=== PATIENT | male | born 1935 | race Caucasian/White ===

== ENCOUNTER 2022-02-13 09:18 | Emergency (ER) | payer MEDICARE, OTHER ==
[~2022-02-13] VITALS: Ht 172.7 cm; Wt 79.4 kg
--- NOTE | 2022-02-13 09:26 | NUR ---
HERO [id number] FROM [facility], C/O LEFT HIP PAIN FOR "UNWITNESSED FALL". TO ER BED 4.
--- NOTE | 2022-02-13 09:36 | NUR ---
DR FERMIN AT BEDSIDE FOR EVAL
--- NOTE | 2022-02-13 12:53 | NUR ---
[facility] CALLED FOR TRANSPORT, ETA 90 MIN PER RUPERTO.
--- NOTE | 2022-02-13 12:57 | NUR ---
PT REPORT GIVEN VELVET FROST SALES MARKETING COORDINATOR AT [facility].
--- NOTE | 2022-02-13 13:51 | NUR ---
EMT AT BEDSIDE TO PICKUP PT; ENDORSEMENT GIVEN TO EMT
--- NOTE | 2022-02-13 14:03 | NUR ---
Patient discharged to [facility] in stable condition via gurney accompanied by 2 videogame designer. Written and verbal after care instructions given. Patient verbalizes understanding of instruction.
[2022-02-13 14:05] VITALS: BP 124/79
== END 2022-02-13 14:06 ==
LOC: ER 09:20
DX: M25.552 Pain in left hip (principal); M25.551 Pain in right hip; R51.9 Headache, unspecified; M54.2 Cervicalgia; F32.9 Major depressive disorder, single episode, unspecified; F41.9 Anxiety disorder, unspecified; G89.29 Other chronic pain
CPT/HCPCS: 70450-TC; 72125-TC; 73700-TC

== ENCOUNTER 2022-06-03 19:42 | Inpatient (IN) | payer MEDICARE, OTHER ==
[~2022-06-03] VITALS: Ht 182.9 cm; Wt 84.2 kg
--- NOTE | 2022-06-03 19:58 | NUR ---
PT HERO 79 FROM [place] FOR C/O RED BLOOD IN THE STOOL X TODAY. PT AAOX4, ABLE TO MAKE NEEDS KNOWN. PT PLACED COMFORTABLY IN BED, VITALS CHECKED.
--- NOTE | 2022-06-03 20:04 | NUR ---
MOVE SHEET SUBMITTED.
--- NOTE | 2022-06-03 20:10 | NUR ---
EKG DONE AT BEDSIDE
--- NOTE | 2022-06-03 20:27 | NUR ---
MICROELECTRONICS TECHNICIAN AT PT'S BEDSIDE
--- NOTE | 2022-06-03 20:30 | NUR ---
BLOOD WORK COLLECTED AND SENT TO LAB
--- NOTE | 2022-06-03 20:35 | NUR ---
COVID ANTIGEN SWAB COLLECTED AND SENT TO LAB
--- NOTE | 2022-06-03 20:38 | NUR ---
Gianfranco molina in [facility] - 06/03/22 at 2038 by MIYA COVID SWAB COLLECTED AND SENT TO LAB
--- NOTE | 2022-06-03 20:40 | NUR ---
XR AT BEDSIDE
[2022-06-03 21:21] LABS: BASOPHILS % (AUTO) 0.4 % (0.0-2.0); EOSINOPHILS % (AUTO) 0.9 % (0.0-6.0); HEMATOCRIT 44 % (39-51); HEMOGLOBIN 14.4 g/dL (13.5-17.5); LYMPHOCYTES # (AUTO) 1.6 K/uL (0.8-4.8); LYMPHOCYTES % (AUTO) 25.9 % (20.0-44.0); MEAN CORPUSCULAR HGB CONC 33 g/dl (31.0-36.0); MEAN CORPUSCULAR VOLUME 96 fL (80-96); MONOCYTES # (AUTO) 0.4 K/uL (0.1-1.30); NEUTROPHILS % (AUTO) 65.8 % (43.0-81.0); PLATELET COUNT (AUTO) 211 K/uL (150-450); RED BLOOD CELL COUNT(AUTO) 4.56 MIL/uL (4.5-6.0); WHITE BLOOD COUNT (AUTO) 6.1 K/uL (4.3-11.0)
--- NOTE | 2022-06-03 21:28 | NUR ---
SHIRA ALLAN DATABASE ENGINEER AT PT'S BEDSIDE FOR EVAL
[2022-06-03 21:31] LABS: CALCIUM, SERUM 9.2 mg/dL (8.5-10.1); CARBON DIOXIDE 27 mmol/L (21-32); CHLORIDE 105 mmol/L (98-107); CREATININE 1.3 mg/dL (0.6-1.3); GLUCOSE 123 mg/dL (74-106); POTASSIUM 4.2 mmol/L (3.5-5.1); SODIUM SERUM 140 mmol/L (136-145); UREA NITROGEN, BLOOD 23 mg/dL (7-18)
[2022-06-03 21:37] LABS: ALANINE AMINOTRANSFERASE 11 U/L (12-78); ALBUMIN 3.6 g/dL (3.4-5.0); ALKALINE PHOSPHATASE 77 U/L (46-116); ASPARTATE AMINOTRANSFERASE 12 U/L (15-37); BILIRUBIN,DIRECT 0.2 mg/dL (0.0-0.2); BILIRUBIN,TOTAL 0.8 mg/dL (0.2-1.0); TOTAL PROTEIN, SERUM 6.9 g/dL (6.4-8.2)
--- NOTE | 2022-06-03 22:05 | NUR ---
1-PERSON ASSIST TO RESTROOM, OCCULT BLOOD COLLECTED AND SENT TO LAB
[2022-06-03] MEDS ORDERED: GABA600T12 PO (22:21)
[2022-06-03] MEDS ORDERED: MIRT-121 PO (22:21)
[2022-06-03] MEDS ORDERED: HYDR-3972 PO (22:21)
[2022-06-03] MEDS ORDERED: ATAZ300C PO (22:21)
[2022-06-03] MEDS ORDERED: ABAC1TAB3 PO (22:21)
[2022-06-03] MEDS ORDERED: ACETAMINOPHEN 325 MG TABLET PO PRN (22:30)
[2022-06-03] MEDS ORDERED: Z GUARD REMEDY 4 OZ OINT TP PRN (22:30)
[2022-06-03] MEDS ORDERED: ONDANSETRON HCL/PF 4 MG/2 ML VIAL IVP PRN (22:30)
[2022-06-03] MEDS ORDERED: MAGNESIUM HYDROXIDE 30 ML UDC PO PRN (22:30)
[2022-06-03] MEDS ORDERED: MAG HYDROX/AL HYDROX/SIMETH 30 ML UDC PO PRN (22:30)
[2022-06-03] MEDS ORDERED: ZOLPIDEM TARTRATE 5 MG TABLET PO PRN (22:30)
--- NOTE | 2022-06-03 22:30 | NUR ---
REPORT GIVEN TO VELVTE CRAVEN.
--- NOTE | 2022-06-03 22:46 | NUR ---
TRANSFERRING PT TO 308-1 VIA ACLS PROTOCOL. VSS. ALL BELONGINGS WITH PT
[2022-06-03 23:00] VITALS: BP 127/76
--- NOTE | 2022-06-03 23:00 | NUR ---
MS CARD READER INITIAL NOTES ADMIT PT FROM ER VIA GURNEY ACCOMPANIED BY ER NURSE AND TECH. DX OF GI BLEED. PT IS AWAKE AND ALERT , KNOW WHERE HE AT BUT HE DOESN'T KNOW WHICH HOSPITAL. ORIENTED PT WHERE HE AT HOW TO USED THE CALL LIGHT SYSTEM. DENIES ANY PAIN OR ANY DISCOMFORT. HE 'S SKIN WARM AND DRY TO TOUCH . PT NOTICED SOME CONFUSION AND FORGETFUL. HE NEEDS RE-ORIENTATION AND REDIRECTION. IVF NS AT 90ML/HR INFUSING AT THIS TIME. KEPT HIM WARM AND COMFORTABLE AT ALL TIMES. BED IN LOW AND LOCK IN POSITION WITH SIDE RAILS X2 UP AND BED ALARM SET FOR SAFETY. PLACE CALL LIGHT AT REACH.
[2022-06-03 23:26] LABS: OCCULT BLOOD STOOL NEGATIVE (NEGATIVE)
[2022-06-04] MEDS: PANTOPRAZOLE 40 MG VIAL IV SCH ×3 (00:43→20:02)
[2022-06-04] MEDS: IV NS 0.9% 1,000 ML IV PRN ×2 (05:21→17:45)
[2022-06-04 06:02] LABS: BASOPHILS % (AUTO) 0.4 % (0.0-2.0); EOSINOPHILS % (AUTO) 1.6 % (0.0-6.0); HEMATOCRIT 41 % (39-51); HEMOGLOBIN 13.6 g/dL (13.5-17.5); LYMPHOCYTES # (AUTO) 1.4 K/uL (0.8-4.8); LYMPHOCYTES % (AUTO) 26.5 % (20.0-44.0); MEAN CORPUSCULAR HGB CONC 34 g/dl (31.0-36.0); MEAN CORPUSCULAR VOLUME 96 fL (80-96); MONOCYTES # (AUTO) 0.4 K/uL (0.1-1.30); MONOCYTES % (AUTO) 7.4 % (2.0-12.0); NEUTROPHILS # (AUTO) 3.4 K/uL (1.8-8.9); NEUTROPHILS % (AUTO) 64.1 % (43.0-81.0); PLATELET COUNT (AUTO) 183 K/uL (150-450); RED BLOOD CELL COUNT(AUTO) 4.22 MIL/uL (4.5-6.0); WHITE BLOOD COUNT (AUTO) 5.2 K/uL (4.3-11.0)
[2022-06-04 06:32] LABS: ALBUMIN 3.3 g/dL (3.4-5.0); BILIRUBIN,TOTAL 0.8 mg/dL (0.2-1.0); CALCIUM, SERUM 8.7 mg/dL (8.5-10.1); CREATININE 1.1 mg/dL (0.6-1.3); MAGNESIUM 1.9 mg/dL (1.8-2.4); TOTAL PROTEIN, SERUM 6.1 g/dL (6.4-8.2)
--- NOTE | 2022-06-04 07:46 | NUR ---
MS RN NOTES RECEIVE PATIENT AWAKE IN BED, AOX1-[address], FORGETFUL, REORIENTED AND REDIRECTED NEEDED, DENIES ANY PAIN OR ANY DISCOMFORT. IV ACCESS IN LAC# 20, NS AT 90ML/HR INFUSING AT THIS TIME. PATENT AND INTACT. KEPT HIM WARM AND COMFORTABLE AT ALL TIMES. BED IN LOW AND LOCK IN POSITION WITH SIDE RAILS X2 UP AND BED ALARM SET FOR SAFETY. PLACE CALL LIGHT AT REACH. WILL CONTINUE TO MONITOR PATIENT
[2022-06-04 08:00] VITALS: BP 137/77
[2022-06-04] MEDS: GABAPENTIN 300 MG CAPSULE PO SCH ×2 (08:43→16:12)
[2022-06-04] MEDS: HYDROCODONE/APAP 5/325MG TABLET PO SCH ×2 (08:43→20:04)
[2022-06-04] MEDS ORDERED: ATAZANAVIR SULFATE 300 MG CAPSULE PO SCH (09:00)
[2022-06-04] MEDS ORDERED: Medication Not On Formulary EA (Abacavir Sulfate/Lamivudine (Epzicom Tablet) 1 TAB) PO SCH (09:00)
[2022-06-04 12:20] LABS: BILIRUBIN,URINE NEGATIVE (NEGATIVE); COLOR,URINE YELLOW (YELLOW); LEUKOCYTE ESTERASE ,URINE 3+ (NEGATIVE); NITRITE, URINE POSITIVE (NEGATIVE); PH,URINE 7.5 (5.0-8.0); PROTEIN,URINE NEGATIVE (NEGATIVE); UGLUCOSE NEGATIVE (NEGATIVE); UROBILINOGEN,URINE 0.2 EU/dL (0.2)
[2022-06-04 12:40] LABS: BACTERIA,URINE Many /HPF (None Seen); SQUAMOUS EPITHELIAL CELL,UR Rare /HPF (None Seen); WBC,URINE 21-50 /HPF (0-3)
--- NOTE | 2022-06-04 14:19 | NUR ---
RN NOTES PT COMPLAINED THAT HE'S HUNGRY, REPORTED TO DR JACOBS WITH ORDER TO CHANGE NPO TO REGULAR DIET.
[2022-06-04 16:00] VITALS: BP 132/74
--- NOTE | 2022-06-04 18:42 | NUR ---
MS RN CLOSING NOTES PATIENT AWAKE IN BED WATCHING TV, AOX1-[address], FORGETFUL, REORIENTED AND REDIRECTED NEEDED, DENIES ANY PAIN OR ANY DISCOMFORT. IV ACCESS IN LAC# 20, NS AT 90ML/HR INFUSING AT THIS TIME. PATENT AND INTACT. KEPT HIM WARM AND COMFORTABLE AT ALL TIMES. BED IN LOW AND LOCK IN POSITION WITH SIDE RAILS X2 UP AND BED ALARM SET FOR SAFETY. PLACE CALL LIGHT AT REACH. WILL ENDORSE TO THE REAL ESTATE INSPECTOR NURSE FOR DAVID.
--- NOTE | 2022-06-04 19:30 | NUR ---
MS RN OPENING NOTES RECEIVED PATIENT AWAKE IN BED. PATIENT IS A/O TIMES 1-2 AND FORGETFUL. FRENCH SPEAKER AND ABLE TO MAKE NEEDS KNOWN. NO PAIN NOTED. NO SOB NOTED. NO DISTRESS NOTED. ON ROOM AIR AND TOLERATING WELL. PATIENT IS CONTINENT AND USING URINAL. IV ACCESS NOTED ON THE LAC G # 20 INTACT AND RUNNING NS AT 90 ML/HR. ALL SAFETY MEASURES IN PLACE. BED LOCKED IN THE LOWEST POSITION. CALL LIGHT AND TABLE IN EASY REACH. SIDE RAILS UP TIMES 2. ASSESSED IF PATIENT CAN USE CALL LIGHT PROPERLY. WILL CONTINUE TO MONITOR CLOSELY.
[2022-06-04 20:00] VITALS: BP 125/71
[2022-06-04] MEDS: MIRTAZAPINE 15 MG TABLET PO SCH (21:02)
--- NOTE | 2022-06-05 06:47 | NUR ---
MS RN CLOSING NOTES PATIENT AWAKE IN BED. PATIENT IS A/O TIMES 1-2 AND FORGETFUL. KINYARWANDA SPEAKER AND ABLE TO MAKE NEEDS KNOWN. NO PAIN NOTED. NO SOB NOTED. NO DISTRESS NOTED. ON ROOM AIR AND TOLERATING WELL. PATIENT IS CONTINENT AND USING URINAL. IV ACCESS NOTED ON THE RFA G # 20 INTACT AND RUNNING NS AT 90 ML/HR. ALL DUE MEDS GIVEN ORDERED. COOPERATIVE. ALL SAFETY MEASURES IN PLACE. BED LOCKED IN THE LOWEST POSITION. CALL LIGHT AND TABLE IN EASY REACH. SIDE RAILS UP TIMES 2. WILL ENDORSE FOR DAVID..
[2022-06-05 06:52] LABS: BASOPHILS % (AUTO) 0.5 % (0.0-2.0); EOSINOPHILS % (AUTO) 1.6 % (0.0-6.0); HEMATOCRIT 36 % (39-51); HEMOGLOBIN 11.9 g/dL (13.5-17.5); LYMPHOCYTES # (AUTO) 1.4 K/uL (0.8-4.8); LYMPHOCYTES % (AUTO) 29.3 % (20.0-44.0); MEAN CORPUSCULAR HGB CONC 33 g/dl (31.0-36.0); MEAN CORPUSCULAR VOLUME 97 fL (80-96); MONOCYTES # (AUTO) 0.4 K/uL (0.1-1.30); MONOCYTES % (AUTO) 8.6 % (2.0-12.0); NEUTROPHILS # (AUTO) 2.9 K/uL (1.8-8.9); PLATELET COUNT (AUTO) 144 K/uL (150-450); RED BLOOD CELL COUNT(AUTO) 3.68 MIL/uL (4.5-6.0); WHITE BLOOD COUNT (AUTO) 4.8 K/uL (4.3-11.0)
--- NOTE | 2022-06-05 07:27 | NUR ---
MS RN OPENING NOTES RECEIVED PATIENT IN BED, AWAKE. A/O X 2-3, FORGETFUL. NO PAIN NOTED. ON ROOM AIR, TOLERATING WELL, NO SIGN OF ACUTE RESPIRATORY DISTRESS NOTED. IV ACCESS ON LAC #20G, WITH ONGOING NS AT 90 ML/HR, INFUSING WELL. SAFETY MEASURES IN PLACE: BED LOCKED IN THE LOWEST POSITION, CALL LIGHT AND TABLE IN EASY REACH, SIDE RAILS UP TIMES 2, CALL LIGHT AND TRAY TABLE WITHIN EASY REACH. WILL CONTINUE TO MONITOR.
[2022-06-05 08:00] VITALS: BP 123/75
[2022-06-05] MEDS: HYDROCODONE/APAP 5/325MG TABLET PO SCH ×2 (09:00→21:00)
[2022-06-05] MEDS: CEPHALEXIN MONOHYDRATE 250 MG CAPSULE PO SCH ×3 (09:34→16:37)
[2022-06-05] MEDS: GABAPENTIN 300 MG CAPSULE PO SCH ×2 (09:34→16:37)
[2022-06-05] MEDS: PANTOPRAZOLE 40 MG VIAL IV SCH (09:34)
--- NOTE | 2022-06-05 10:00 | NUR ---
RN NOTES CALLED PHARMACY TO VERIFY REYATAZ 300MG/CAP PO DAILY, AUDREY INFORMED THAT HOSPITAL DOES NOT CARRY THE MEDICATION.
--- NOTE | 2022-06-05 10:02 | NUR ---
RN NOTES CALLED [facility] BUT WAS TRANSFERRED TO VOICEMAIL, LEFT VOICEMAIL INFORMING HIM THAT REYATAZ MEDICATION IS NOT CARRIED BY THE HOSPITAL AND THEY NEED TO BRING/PROVIDE.
[2022-06-05 16:00] VITALS: BP 111/72
[2022-06-05] MEDS: IV NS 0.9% 1,000 ML IV PRN (18:43)
--- NOTE | 2022-06-05 18:51 | NUR ---
MS RN CLOSING NOTES PATIENT RESTING IN BED. A/O X 2-3, FORGETFUL. NO PAIN NOTED. ON ROOM AIR, TOLERATED WELL. IV ACCESS ON LAC #20G, WITH ONGOING NS AT 90 ML/HR, INFUSING WELL. SAFETY MEASURES IN PLACE: BED LOCKED IN THE LOWEST POSITION, CALL LIGHT AND TABLE IN EASY REACH, SIDE RAILS UP TIMES 2, CALL LIGHT AND TRAY TABLE WITHIN EASY REACH. WILL ENDORSE DAVID TO DOG CATCHER.
--- NOTE | 2022-06-05 19:30 | NUR ---
bob rn opening Received patient in bed, a/ox3. no s/s of apparent distress on room air. denies pain. IV access on RFA #22 running NS @90mls/hr. safety in place-- bed in lowest locked position, side rails up X3, call light within reach. bed alarm in place. will continue with the plan of care for patient.
[2022-06-05 20:17] LABS: HEMOGLOBIN 13.6 g/dL (13.5-17.5)
[2022-06-05 20:28] VITALS: BP 114/66
[2022-06-05] MEDS: PANTOPRAZOLE 40 MG TABLET.DR PO SCH (21:20)
[2022-06-05] MEDS: MIRTAZAPINE 15 MG TABLET PO SCH (21:20)
--- NOTE | 2022-06-05 21:20 | NUR ---
noc rn [id number] Patient not in pain. Refused @2100 dose of [place]. Unopened tab of [place] returned in [facility] with RNBertram.
--- NOTE | 2022-06-06 04:51 | NUR ---
noc rn note patient IV line got pulled out. Refusing another line to be inserted. Hospitalist Winston Lutz made aware.
--- NOTE | 2022-06-06 06:53 | NUR ---
noc rn note Patient verbalizing anxiety and worry of getting back to his place, saying that he needs help and cannot be alone. Verbalizing that his DPOA Kane is not in any capability of deciding for him and does not want to take care of him. and to quote patient "If I tomorrow I would be happy" "I just don't know what to do with my life, I can't cook and I can't even make myself a sandwich. Made Charge nurse, Juliet aware and said to order social service. Social service in place. Emotional support offered and given to patient.
--- NOTE | 2022-06-06 07:23 | NUR ---
noc rn note All needs attended. all scheduled medications administered. safety in place. endorsed to timothy Guerrero RN for continuity of care.
--- NOTE | 2022-06-06 07:30 | NUR ---
MS RN OPENING NOTES RECEIVED PATIENT IN BED, AWAKE. A/O X 2-3, FORGETFUL. NO PAIN NOTED. ON ROOM AIR, TOLERATING WELL, NO SIGN OF ACUTE RESPIRATORY DISTRESS NOTED. NO IV ACCESS NOTED AND PATIENT REFUSED TO BE REINSERTED . SAFETY MEASURES IN PLACE: BED LOCKED IN THE LOWEST POSITION, CALL LIGHT AND TABLE IN EASY REACH, SIDE RAILS UP TIMES 2, CALL LIGHT AND TRAY TABLE WITHIN EASY REACH. WILL CONTINUE TO MONITOR
[2022-06-06] MEDS ORDERED: PANT40TA49 PO (08:21)
[2022-06-06] MEDS ORDERED: Cephalexin Monohydrate PO (08:21)
[2022-06-06 08:30] VITALS: BP 127/80
[2022-06-06] MEDS: GABAPENTIN 300 MG CAPSULE PO SCH (08:47)
[2022-06-06] MEDS: PANTOPRAZOLE 40 MG TABLET.DR PO SCH (08:48)
[2022-06-06] MEDS: HYDROCODONE/APAP 5/325MG TABLET PO SCH (08:48)
[2022-06-06] MEDS: CEPHALEXIN MONOHYDRATE 250 MG CAPSULE PO SCH ×2 (08:48→13:00)
[2022-06-06] MEDS ORDERED: ATAZANAVIR SULFATE 300 MG CAPSULE PO SCH (09:00)
--- NOTE | 2022-06-06 15:00 | NUR ---
SOLIDS CONTROL TECHNICIAN NOTES PATIENT IS WITH ORDER FOR DISCHARGE TO [facility] , DISCHARGE PAPERS PREPARED AND INSTRUCTIONS PROVIDED TO THE POA AND TO THE PATIENT , ALERT AND FORGETFUL AND WAS ABLE TO SIGN THE BELONGINGS AND THE DISCHARGE INSTRUCTIONS PROVIDED, FACILITY MADE AWARE THAT PATIENT IS COMING BACK . WILL CONTINUE ATB BY MOUTH FOR UTI X 7 DAYS AND MEDICATION FOR GERD , SANDY POA WAS GIVEN INSTRUCTIONS VIA PHONE AND UNDERSTOOD INSTRUCTIONS PROVIDED , ALL BELONGINGS WERE ACCOUNTED FOR AND BROUGHT BY THE PATIENT , ALL DUE MEDS GIVEN , NO C/O OF PAIN AND DISCOMFORT AND PATIENT WAS PICKED UP BY EMT AMBULANCE IN A STABLE CONDITION , ALL NEEDS ATTENDED AND LEFT AROUND 1430 .
== END 2022-06-06 14:33 | DRG 377 ==
LOC: ER 19:43 → TELE 22:02 → MED 22:54
PROVIDERS: ADMIT Nurse Practitioner Acute Care; ATTEND Internal Medicine
DX: K92.2 Gastrointestinal hemorrhage, unspecified (principal); G92.8 Other toxic encephalopathy; F03.93 Unspecified dementia, unspecified severity, with mood disturbance; F03.94 Unspecified dementia, unspecified severity, with anxiety; F41.9 Anxiety disorder, unspecified; F32.A Depression, unspecified; G62.9 Polyneuropathy, unspecified; Z66 Do not resuscitate; G89.4 Chronic pain syndrome; E88.09 Other disorders of plasma-protein metabolism, not elsewhere classified; Z91.013 Allergy to seafood; Z20.822 Contact with and (suspected) exposure to COVID-19
CPT/HCPCS: 36415; 71045-TC; 80048-TC; 80053-TC; 80076-TC; 81001; 82272-TC; 83690-TC; 83735-TC; 84100-TC; 84484-TC; 85025-TC; 85027-TC; 85730-TC; 86850-TC; 87081-TC; 87086-TC; A4223; C9113; C9803; G0378; J7030